=== PATIENT | male | born 1985 | race African-American/Black ===

== ENCOUNTER 2020-06-08 19:11 | Emergency (ER) | payer MEDICAID, OTHER ==
[~2020-06-08] VITALS: Ht 182.9 cm; Wt 113.0 kg
[2020-06-08 19:21] VITALS: BP 178/99
== END 2020-06-08 20:08 | disposition home or self-care (01) ==
LOC: ER 19:18
DX: S81.832A Puncture wound without foreign body, left lower leg, initial encounter (principal); F17.210 Nicotine dependence, cigarettes, uncomplicated; X93.XXXA Assault by handgun discharge, initial encounter; Y93.89 Activity, other specified; Y92.488 Other paved roadways as the place of occurrence of the external cause
CPT/HCPCS: 93005; 99283

== ENCOUNTER 2023-01-02 09:14 | Emergency (ER) | payer MEDICAID ==
[~2023-01-02] VITALS: Ht 190.5 cm; Wt 116.0 kg
[2023-01-02 09:19] VITALS: BP 114/72; PULSE 90; RESP 16; TEMP 99.7; O2SAT 10
[2023-01-02] MEDS ORDERED: AMOX1TAB16 MT (09:41)
[2023-01-02] MEDS ORDERED: IBUP-2030 MT (09:41)
== END 2023-01-02 09:46 | disposition home or self-care (01) ==
LOC: ER 09:14
DX: H66.92 Otitis media, unspecified, left ear (principal)
CPT/HCPCS: 99281; 99283

== ENCOUNTER 2023-04-17 02:12 | Emergency (ER) | payer MEDICAID, OTHER ==
[~2023-04-17] VITALS: Ht 182.9 cm; Wt 84.0 kg
[~2023-04-17 02:12] MED LIST: AMOX1TAB16 MT; IBUP-2030 MT
[2023-04-17 02:36] VITALS: O2SAT 100
[2023-04-17 03:45] LABS: GLUCOSE URINE NEGATIVE (NEGATIVE); KETONES URINE NEGATIVE (NEGATIVE)
[2023-04-17 04:28] LABS: CLARITY URINE CLEAR (CLEAR); COLOR URINE YELLOW (YELLOW); LEUKOCYTE ESTERASE URINE NEGATIVE (NEGATIVE); NITRITE URINE NEGATIVE (NEGATIVE); OCCULT BLOOD URINE TRACE (NEGATIVE); PH URINE 5.5 (4.5-8.0); PROTEIN URINE NEGATIVE (NEGATIVE); SPECIFIC GRAVITY URINE 1.033 (1.005-1.030); UROBILINOGEN URINE 1 E.U./dL (0.2-1.0)
[2023-04-17 04:30] LABS: BACTERIA URINE TRACE; RBC URINE NONE SEEN /hpf (0-2); SQUAMOUS EPITHELIAL CELL URINE FEW /lpf (RARE/1+); WBC URINE NONE SEEN /hpf (0-2)
[2023-04-17] MEDS ORDERED: CEFP200T13 MT (07:04)
[2023-04-17 08:01] VITALS: BP 134/85; PULSE 81; RESP 19; TEMP 98
== END 2023-04-17 08:02 | disposition home or self-care (01) ==
LOC: ER 02:12
DX: N39.0 Urinary tract infection, site not specified (principal)
CPT/HCPCS: 81003; 99283

== ENCOUNTER 2023-06-17 03:39 | Emergency (ER) | payer MEDICAID ==
[~2023-06-17] VITALS: Ht 182.9 cm; Wt 114.0 kg
[~2023-06-17 03:39] MED LIST changes: +CEFP200T13 MT
[2023-06-17 03:49] VITALS: BP 116/62; PULSE 71; RESP 18; TEMP 98.4; O2SAT 100
[2023-06-17 04:36] LABS: BASOPHILS % 0.2 % (0.0-2.0); HEMATOCRIT. 41.5 % (42.0-52.0); HEMOGLOBIN. 13.8 g/dL (14.0-18.0); LYMPHOCYTES % 38.2 % (20.0-50.0); MEAN CORPUSCULAR HEMOGLOBIN 31.7 pg (28.0-32.0); MEAN CORPUSCULAR HGB CONC 33.4 g/dL (31.0-37.0); MEAN CORPUSCULAR VOLUME 94.9 fL (80.0-94.0); MEAN PLATELET VOLUME 8.6 fl (7.4-10.4); MONOCYTES % 8.3 % (2.0-8.0); NEUTROPHILS % 51.3 % (40.0-76.0); PLATELET 203 x1000/uL (130-400); RED BLOOD CELL COUNT 4.37 mill/uL (4.7-6.1); RED CELL DISTRIBUTION WIDTH 12.5 % (11.6-14.6); WHITE BLOOD COUNT 8.9 x1000/uL (4.5-11.0)
[2023-06-17 05:05] LABS: ALANINE AMINOTRANSFERASE 26 IU/L (10-49); ALBUMIN 4.4 g/dL (3.2-4.8); ASPARTATE AMINOTRANSFERASE 32 IU/L (<34); BILIRUBIN TOTAL 0.8 mg/dL (0.1-1.0); CARBON DIOXIDE 26 mEq/L (21-32); CHLORIDE 106 mEq/L (98-107); CREATININE 0.9 mg/dL (0.6-1.3); GLUCOSE 102 mg/dL (70-105); POTASSIUM 3.8 mEq/L (3.5-5.1); PROTEIN TOTAL 7.9 g/dL (6.0-8.3); SODIUM 139 mEq/L (136-145); UREA NITROGEN BLOOD 17 mg/dL (9-23)
[2023-06-17 05:12] LABS: TROPONIN I HIGH SENSITIVITY < 4 ng/L (3.0-53)
== END 2023-06-17 09:48 | disposition home or self-care (01) ==
LOC: ER 03:39
DX: R07.89 Other chest pain (principal)
CPT/HCPCS: 36415; 71045; 80053; 84484; 85025; 93005; 99285

== ENCOUNTER 2023-07-27 01:32 | Emergency (ER) | payer MEDICAID ==
[~2023-07-27] VITALS: Ht 182.9 cm; Wt 108.1 kg
[2023-07-27 01:53] VITALS: BP 124/70; PULSE 78; RESP 14; TEMP 97.8; O2SAT 99
[2023-07-27] MEDS ORDERED: FLUT9.9S BOTHNSTRLS (06:32)
[2023-07-27] MEDS ORDERED: LORA10TA7 MT (06:32)
[2023-07-27] MEDS ORDERED: IBUP-2029 MT (06:34)
[2023-07-28] MEDS ORDERED: TRAM50TA3 MT (00:52)
[2023-07-28] MEDS ORDERED: NAPR-681 PO (00:52)
== END 2023-07-27 07:14 | disposition home or self-care (01) ==
LOC: ER 01:40
DX: S33.5XXA Sprain of ligaments of lumbar spine, initial encounter (principal); J30.9 Allergic rhinitis, unspecified; X58.XXXA Exposure to other specified factors, initial encounter; Y93.89 Activity, other specified; Y92.89 Other specified places as the place of occurrence of the external cause; Y99.8 Other external cause status
CPT/HCPCS: 99283

== ENCOUNTER 2023-07-27 21:06 | Emergency (ER) | payer MEDICAID ==
[~2023-07-27] VITALS: Ht 182.9 cm; Wt 130.5 kg
[~2023-07-27 21:06] MED LIST changes: +FLUT9.9S BOTHNSTRLS; +IBUP-2029 MT; +LORA10TA7 MT
[2023-07-27 21:20] VITALS: O2SAT 97
[2023-07-28] MEDS ORDERED: TRAM50TA3 MT (00:52)
[2023-07-28] MEDS ORDERED: NAPR-681 PO (00:52)
[2023-07-28] MEDS: KETOROLAC 60MG/2ML VIAL IM STA (00:55)
[2023-07-28] MEDS: KETOROLAC 60MG/2ML VIAL IM NR (00:59)
[2023-07-28 01:25] VITALS: BP 110/60; PULSE 88; RESP 16; TEMP 97.8
== END 2023-07-28 01:30 | disposition home or self-care (01) ==
LOC: ER 21:06
DX: G89.29 Other chronic pain (principal); M79.605 Pain in left leg; Z79.899 Other long term (current) drug therapy
CPT/HCPCS: 99283; 96372; Z7610; J1885

== ENCOUNTER 2023-07-30 11:03 | Emergency (ER) | payer MEDICAID ==
[~2023-07-30] VITALS: Ht 185.4 cm; Wt 127.0 kg
[~2023-07-30 11:03] MED LIST changes: +NAPR-681 PO; +TRAM50TA3 MT
[2023-07-30 11:05] VITALS: BP 148/110; PULSE 100; RESP 18; O2SAT 100
[2023-07-30 11:33] LABS: BASOPHILS % 0.2 % (0.0-2.0); EOSINOPHILS % 1.5 % (0.0-5.0); HEMATOCRIT. 44.2 % (42.0-52.0); HEMOGLOBIN. 14.6 g/dL (14.0-18.0); LYMPHOCYTES % 40.5 % (20.0-50.0); MEAN CORPUSCULAR HEMOGLOBIN 31.8 pg (28.0-32.0); MEAN CORPUSCULAR HGB CONC 33.1 g/dL (31.0-37.0); MEAN CORPUSCULAR VOLUME 96.1 fL (80.0-94.0); MEAN PLATELET VOLUME 8.4 fl (7.4-10.4); MONOCYTES % 9.5 % (2.0-8.0); NEUTROPHILS % 48.3 % (40.0-76.0); PLATELET 196 x1000/uL (130-400); RED CELL DISTRIBUTION WIDTH 13.3 % (11.6-14.6); WHITE BLOOD COUNT 6.9 x1000/uL (4.5-11.0)
[2023-07-30 11:50] LABS: INR 1.1
[2023-07-30 11:54] LABS: ALANINE AMINOTRANSFERASE 12 IU/L (10-49); ALBUMIN 4.5 g/dL (3.2-4.8); ASPARTATE AMINOTRANSFERASE 19 IU/L (<34); BILIRUBIN TOTAL 1.5 mg/dL (0.1-1.0); CARBON DIOXIDE 28 mEq/L (21-32); CHLORIDE 104 mEq/L (98-107); CREATININE 0.8 mg/dL (0.6-1.3); GLUCOSE 85 mg/dL (70-105); POTASSIUM 3.8 mEq/L (3.5-5.1); PROTEIN TOTAL 7.8 g/dL (6.0-8.3); SODIUM 138 mEq/L (136-145)
[2023-07-30 12:02] LABS: UREA NITROGEN BLOOD < 5 mg/dL (9-23)
== END 2023-07-30 17:07 | disposition left against medical advice (07) ==
LOC: ER 11:03
DX: G89.29 Other chronic pain (principal); M79.605 Pain in left leg
CPT/HCPCS: 36415; 80053; 85025; 99283